=== PATIENT | female | born 1970 | race Two or more races ===

== ENCOUNTER 2017-06-27 13:00 | Outpatient (CLI) | payer OTHER ==
[~2017-06-27 13:00] MED LIST: ACIDOPHILUS1 EAC4; ATIVAN2 M1; CLONAZEPAM1 MG PO; DALMANE30 MG PO; EFFEXOR XR75 MG; ELAVIL PO; LEVSIN0.125 MG; NEURONTIN600 MG; OXYCODONE HC20 MG/ML; PERCOCET 5/3251 TAB; PHENERGAN25 MG PO; PROTONIX40 M1 PO; SEROQUEL50 MG; SYNTHROID50 MCG PO; THORAZINE PO; TRAZODONE HCL100 MG; VISTARIL25 MG; WELLBUTRIN SR100 MG; WELLBUTRIN XL300 MG PO
== END 2017-06-27 13:09 | disposition home or self-care (01) ==
LOC: LAB 13:00
DX: A09 Infectious gastroenteritis and colitis, unspecified (principal)

== ENCOUNTER 2017-08-29 13:41 | Emergency (ER) | payer OTHER ==
[~2017-08-29] VITALS: Ht 154.9 cm; Wt 54.4 kg
[2017-08-29] MEDS ORDERED: BELSOMRA20 MG (14:29)
[2017-08-29] MEDS ORDERED: PROZAC40 MG (14:30)
== END 2017-08-29 21:52 | disposition home or self-care (01) ==
LOC: ER 13:41
DX: K52.9 Noninfective gastroenteritis and colitis, unspecified (principal)

== ENCOUNTER 2017-10-12 16:44 | Inpatient (IN) | payer OTHER ==
[~2017-10-12] VITALS: Ht 154.9 cm; Wt 61.2 kg
[~2017-10-12 16:44] MED LIST changes: +BELSOMRA20 MG; +PROZAC40 MG
[2017-10-12] MEDS ORDERED: TORADOL60 MG (17:11)
[2017-10-12] MEDS ORDERED: TOPAMAX25 M1 PO (17:11)
[2017-10-12] MEDS ORDERED: COZAAR100 MG PO (17:11)
[2017-10-12] MEDS ORDERED: CARDURA1 MG PO (17:12)
== END 2017-11-21 14:17 | disposition home or self-care (01) | DRG 330 ==
LOC: ER 16:44 → SEC-K 10-13 08:31 → SURG 10-13 08:31
PROVIDERS: Colon & Rectal Surgery
PROC: 0DJD8ZZ Inspection of Lower Intestinal Tract, Via Natural or Artificial Opening Endoscopic (ICD-10-PCS; 2017-10-15)
PROC: 3E0336Z Introduction of Nutritional Substance into Peripheral Vein, Percutaneous Approach (ICD-10-PCS; 2017-10-16)
PROC: B54MZZZ Ultrasonography of Right Upper Extremity Veins (ICD-10-PCS; 2017-10-17)
PROC: 02H633Z Insertion of Infusion Device into Right Atrium, Percutaneous Approach (ICD-10-PCS; 2017-10-17)
PROC: BW21ZZZ Computerized Tomography (CT Scan) of Abdomen and Pelvis (ICD-10-PCS; 2017-10-23)
PROC: 0DQ84ZZ Repair Small Intestine, Percutaneous Endoscopic Approach (ICD-10-PCS; 2017-10-24)
PROC: 0DN84ZZ Release Small Intestine, Percutaneous Endoscopic Approach (ICD-10-PCS; principal; 2017-10-24 12:00)
PROC: BW21Y0Z Computerized Tomography (CT Scan) of Abdomen and Pelvis using Other Contrast, Unenhanced and Enhanced (ICD-10-PCS; 2017-10-28)
PROC: BW21Y0Z Computerized Tomography (CT Scan) of Abdomen and Pelvis using Other Contrast, Unenhanced and Enhanced (ICD-10-PCS; 2017-11-03)
PROC: 0DB68ZX Excision of Stomach, Via Natural or Artificial Opening Endoscopic, Diagnostic (ICD-10-PCS; 2017-11-06)
PROC: B030ZZZ Magnetic Resonance Imaging (MRI) of Brain (ICD-10-PCS; 2017-11-09)
PROC: B246ZZZ Ultrasonography of Right and Left Heart (ICD-10-PCS; 2017-11-10)
PROC: 4A00X4Z Measurement of Central Nervous Electrical Activity, External Approach (ICD-10-PCS; 2017-11-12)
PROC: BW21ZZZ Computerized Tomography (CT Scan) of Abdomen and Pelvis (ICD-10-PCS; 2017-11-13)
PROC: BW2FY0Z Computerized Tomography (CT Scan) of Neck using Other Contrast, Unenhanced and Enhanced (ICD-10-PCS; 2017-11-14)
PROC: 02HV33Z Insertion of Infusion Device into Superior Vena Cava, Percutaneous Approach (ICD-10-PCS; 2017-11-17)
PROC: CD171ZZ Planar Nuclear Medicine Imaging of Gastrointestinal Tract using Technetium 99m (Tc-99m) (ICD-10-PCS; 2017-11-18)
DX: K45.0 Other specified abdominal hernia with obstruction, without gangrene (principal); E87.1 Hypo-osmolality and hyponatremia; G40.89 Other seizures; K56.51 Intestinal adhesions [bands], with partial obstruction; K91.71 Accidental puncture and laceration of a digestive system organ or structure during a digestive system procedure; K56.0 Paralytic ileus; K91.89 Other postprocedural complications and disorders of digestive system; N39.0 Urinary tract infection, site not specified; R78.81 Bacteremia; E86.0 Dehydration; I11.9 Hypertensive heart disease without heart failure; F41.8 Other specified anxiety disorders; E03.8 Other specified hypothyroidism; G47.09 Other insomnia; D35.2 Benign neoplasm of pituitary gland; G89.18 Other acute postprocedural pain; R10.84 Generalized abdominal pain; M62.830 Muscle spasm of back; K31.84 Gastroparesis; W18.39XA Other fall on same level, initial encounter; Y93.89 Activity, other specified; Y92.230 Patient room in hospital as the place of occurrence of the external cause; Y99.8 Other external cause status; E83.39 Other disorders of phosphorus metabolism; B95.2 Enterococcus as the cause of diseases classified elsewhere; G44.89 Other headache syndrome
CPT/HCPCS: 70551

== ENCOUNTER 2019-02-12 01:56 | Emergency (ER) | payer OTHER ==
[~2019-02-12] VITALS: Ht 154.9 cm; Wt 56.2 kg
[~2019-02-12 01:56] MED LIST changes: +CARDURA1 MG PO; +COZAAR100 MG PO; +TOPAMAX25 M1 PO; +TORADOL60 MG
[2019-02-12] MEDS ORDERED: CELEXA40 MG (02:03)
[2019-02-12] MEDS ORDERED: RESTORIL30 M1 (02:04)
[2019-02-12] MEDS ORDERED: ZOFRAN4 MG PO (06:28)
[2019-02-12] MEDS ORDERED: LEVSIN/SL0.125 MG SL (06:28)
== END 2019-02-12 06:43 ==
LOC: ER 01:56
DX: R10.84 Generalized abdominal pain (principal)

== ENCOUNTER 2024-11-26 17:28 | Inpatient (IN) | payer OTHER ==
[~2024-11-26] VITALS: Ht 157.5 cm; Wt 51.7 kg
[~2024-11-26 17:28] MED LIST changes: +CELEXA40 MG; +LEVSIN/SL0.125 MG SL; +RESTORIL30 M1; +ZOFRAN4 MG PO
[2024-11-26] MEDS ORDERED: [UNRECOGNIZED DRUG - OTHER] (18:16)
[2024-11-26] MEDS ORDERED: COZAAR25 MG PO (18:16)
[2024-11-26] MEDS ORDERED: BELSOMRA20 MG PO (18:17)
[2024-11-26] MEDS ORDERED: ESTAZOLAM1 MG PO (18:17)
[2024-11-26] MEDS ORDERED: DOXEPIN HCL100 MG PO (18:17)
[2024-11-26] MEDS ORDERED: EMGALITY P120 MG/1 M SQ (18:18)
[2024-11-26] MEDS ORDERED: 0.9 % SODIUM CHLORIDE 1,000 ML IV ONE (19:00)
[2024-11-26] MEDS ORDERED: FAMOTIDINE/PF 20 MG/2 ML VIAL IV ONE (19:00)
[2024-11-26] MEDS ORDERED: KETOROLAC TROMETHAMINE 30 MG VIAL IV ONE (19:00)
[2024-11-26] MEDS ORDERED: LACTOBACILLUS ACIDOPHILUS 1 CAP CAP PO ONE ×2 (19:00→19:01)
[2024-11-26] MEDS ORDERED: KETOROLAC TROMETHAMINE 30 MG VIAL ONE (19:01)
[2024-11-26] MEDS ORDERED: FAMOTIDINE/PF 20 MG/2 ML VIAL ONE (19:01)
[2024-11-26 19:16] LABS: BASO % 0.5 % (0.1-1.2); EOS # 0.19 (0.04-0.54); EOS % 1.9 % (0.7-7.0); HEMATOCRIT 40.9 % (34.1-44.9); HEMOGLOBIN 13.9 g/dL (11.2-15.7); LYMPH # 1.15 (1.18-3.74); LYMPH % 11.4 % (19.3-53.1); MEAN CORPUSCULAR HEMOGLOBIN 29.1 pg (25.6-32.2); MONO # 0.56 (0.24-0.82); MONO % 5.6 % (4.7-12.5); NEUT # 8.09 (1.56-6.13); NEUT % 80.2 % (34.0-71.1); PLATELET COUNT 302 K/uL (163-369); RED BLOOD COUNT 4.77 M/uL (3.93-5.22); RED CELL DISTRIBUTION WIDTH 11.9 % (11.6-14.4)
[2024-11-26 20:03] LABS: ALBUMIN 4.1 gm/dL (3.4-5.0); BILIRUBIN TOTAL 0.6 mg/dL (0.3-1.2); CALCIUM 8.7 mg/dL (8.5-10.1); CREATININE SERUM 0.87 mg/dL (0.55-1.02); GFR 67.6; GLOBULINA 3.3 G/DL (2.4-3.5); POTASSIUM 4.84 mEq/L (3.5-5.1); TOTAL PROTEIN 7.4 gm/dL (6.4-8.2)
[2024-11-26] MEDS ORDERED: PANTOPRAZOLE SODIUM 80 MG in 0.9 % SODIUM CHLORIDE 100 ML IV SCH (23:30)
[2024-11-26] MEDS ORDERED: 0.9 % SODIUM CHLORIDE 1,000 ML IV SCH (23:30)
[2024-11-26] MEDS ORDERED: CIPROFLOXACIN IN 5 % DEXTROSE 200 ML IV SCH (23:31)
[2024-11-26] MEDS ORDERED: MORPHINE SULFATE 4 MG/ML CARTRIDGE IV ONE (23:45)
[2024-11-26] MEDS ORDERED: MORPHINE SULFATE 2 MG/ML CARTRIDGE IV PRN (23:45)
[2024-11-26] MEDS ORDERED: ONDANSETRON HCL 4 MG in 0.9 % SODIUM CHLORIDE 50 ML IV PRN (23:45)
[2024-11-27] MEDS ORDERED: METRONIDAZOLE/SODIUM CHLORIDE 100 ML IV SCH (01:00)
[2024-11-27 01:36] LABS: INR 1.05; PARTIAL THROMBOPLASTIN TIME 33.4 SECONDS (22.0-34.0); PROTHROMBIN TIME 11.4 SECONDS (9.0-11.5)
[2024-11-27] MEDS ORDERED: LEVOTHYROXINE SODIUM 50 MCG TABLET PO SCH (06:00)
[2024-11-27 07:50] VITALS: BP 95/61
[2024-11-27] MEDS ORDERED: LOSARTAN POTASSIUM 25 MG TABLET PO SCH (09:00)
[2024-11-27] MEDS ORDERED: ENALAPRILAT DIHYDRATE 1.25 MG/ML VIAL IV SCH (13:00)
[2024-11-27] MEDS ORDERED: LEVOTHYROXINE SODIUM 100 MCG/VIAL VIAL IV SCH (17:00)
[2024-11-27 17:52] VITALS: BP 137/85; O2SAT 99
[2024-11-27 17:53] LABS: URINE APPEARANCE Clear; URINE BILIRRUBIN Negative (NEGATIVE); URINE BLOOD Negative; URINE COLOR Yellow; URINE GLUCOSE Negative (NEGATIVE); URINE LEUKOCYTE Negative; URINE NITRATE Negative; URINE PROTEIN Negative (NEGATIVE); URINE UROBILINOGEN 0.2 E.U./dl
[2024-11-27 17:57] LABS: URINE BACTERIA 67.2 uL (0.0-1933); URINE CAST 1.91 uL (0.0-1.40); URINE EPITHELIAL CELLS 7.2 uL (0.0-38.8); URINE RBC 3.3 uL (0.0-20.8); URINE WBC 6.9 uL (0.0-23.2)
[2024-11-27 18:05] LABS: URINE KETONE 40 (NEGATIVE)
[2024-11-27] MEDS ORDERED: DEXTROSE 5 % AND 0.9 % NACL 1,000 ML IV SCH (23:45)
[2024-11-28 01:32] VITALS: BP 103/66; O2SAT 97
[2024-11-28 05:22] VITALS: BP 111/69
[2024-11-28 08:49] VITALS: BP 101/68
[2024-11-28 17:00] VITALS: BP 119/75; O2SAT 100
[2024-11-28 20:33] LABS: BASO % 0.5 % (0.1-1.2); EOS # 0.23 (0.04-0.54); EOS % 3.7 % (0.7-7.0); HEMATOCRIT 36.6 % (34.1-44.9); HEMOGLOBIN 12.8 g/dL (11.2-15.7); LYMPH # 1.01 (1.18-3.74); LYMPH % 16.3 % (19.3-53.1); MEAN CORPUSCULAR HEMOGLOBIN 29.4 pg (25.6-32.2); MONO # 0.41 (0.24-0.82); MONO % 6.6 % (4.7-12.5); NEUT # 4.51 (1.56-6.13); NEUT % 72.6 % (34.0-71.1); PLATELET COUNT 346 K/uL (163-369); RED BLOOD COUNT 4.35 M/uL (3.93-5.22); RED CELL DISTRIBUTION WIDTH 11.9 % (11.6-14.4)
[2024-11-28 21:17] LABS: CALCIUM 8.2 mg/dL (8.5-10.1); CREATININE SERUM 0.69 mg/dL (0.55-1.02); GFR 88.33; POTASSIUM 3.28 mEq/L (3.5-5.1)
[2024-11-28 21:49] LABS: PHOSPHOROUS 1.4 mg/dL (2.5-4.9)
[2024-11-29 01:38] VITALS: BP 121/80; O2SAT 97
[2024-11-29 05:50] VITALS: BP 91/59
[2024-11-29 08:58] VITALS: BP 111/68; O2SAT 99
[2024-11-29] MEDS ORDERED: POTASSIUM CHLORIDE IN WATER 40 MEQ/100 ML PIGGYBAG IV SCH (11:00)
[2024-11-29] MEDS ORDERED: MAGNESIUM SULFATE IN WATER 50 ML IV NR (11:00)
[2024-11-29] MEDS ORDERED: POTASSIUM PHOS,M-BASIC-D-BASIC 18 MM in 0.9 % SODIUM CHLORIDE 250 ML IV NR (12:00)
[2024-11-29 16:33] VITALS: BP 127/84; O2SAT 96
[2024-11-29] MEDS ORDERED: LEVOTHYROXINE SODIUM 100 MCG/VIAL VIAL IV SCH (17:00)
[2024-11-30 00:49] VITALS: BP 116/76
[2024-11-30 07:57] LABS: CALCIUM 7.8 mg/dL (8.5-10.1); CREATININE SERUM 0.7 mg/dL (0.55-1.02); GFR 86.87; MAGNESIUM 2.2 mg/dL (1.8-2.4); PHOSPHOROUS 2.6 mg/dL (2.5-4.9); POTASSIUM 3.59 mEq/L (3.5-5.1)
[2024-11-30 09:07] VITALS: BP 123/80; O2SAT 100
== END 2024-11-30 12:55 | disposition home or self-care (01) | DRG 392 ==
LOC: ER 17:35 → MEDJ 11-27 01:36
PROVIDERS: General Practice; ADMIT Internal Medicine; ATTEND Internal Medicine
PROC: BW21ZZZ Computerized Tomography (CT Scan) of Abdomen and Pelvis (ICD-10-PCS; principal; 2024-11-26)
DX: K52.9 Noninfective gastroenteritis and colitis, unspecified (principal); K56.7 Ileus, unspecified; K29.50 Unspecified chronic gastritis without bleeding; E83.39 Other disorders of phosphorus metabolism; I10 Essential (primary) hypertension; E03.9 Hypothyroidism, unspecified